=== PATIENT | female | born 1945 | race Caucasian/White ===

== ENCOUNTER 2017-08-29 06:54 | Day surgery (SDC) | payer MEDICARE, OTHER ==
[2017-08-26 17:01] VITALS: BMI 19.0
--- NOTE | 2017-08-29 09:11 | OP ---
DATE OF PROCEDURE: 08/29/2017 SURGEON: Dr. Jules Stanley PREOPERATIVE DIAGNOSES: Persistent nausea and vomiting. PROCEDURE: After informed consent was obtained, the patient was placed in the left lateral decubitus position. Anesthesia was administered per the Anesthesia Department. Forward-viewing endoscope was inserted into the esophagus under direct visualization with ease and passed to the second portion of the duodenum with ease. The second portion of the duodenum and duodenal bulb were normal. The pylo ward, antrum, body, fundus, and cardia were normal except for diffuse nonerosive gastritis. Biopsies were taken. Retroflexion in the stomach was normal. The esophagus showed white plaques throughout t he esophagus consistent with Kailey esophagitis. A 54 [place] Callahan was passed with some mild resi stance. Reinsertion of the endoscope showed some post-dilatation bleeding at the GE junction. ASSESSMENT: 1. Esophageal stricture - status post Callahan dilatation. 2. Kailey esophagitis. 3. Diffuse nonerosive gastritis - status post biopsy. RECOMMENDATIONS: 1. Diflucan. 2. Continue Nexium. 3. Follow up in my office in 2-3 days.
--- NOTE | 2017-08-29 11:18 | RAD ---
PA AND LATERAL VIEWS CHEST: HISTORY: Nausea. FINDINGS: The heart is enlarged. A left-sided AICD is present. The lungs are well expanded without confluent areas of consolidation, pneumothorax, or pleural effusions. There are mild degenerative changes in t he spine. No migel pulmonary edema is seen. IMPRESSION: Cardiomegaly. POS: CINTHYA
[2017-08-29] MEDS ORDERED: Lidocaine 1% PF 5 ML VIAL ONE (14:43)
== END 2017-08-29 09:40 | disposition home or self-care (01) ==
LOC: SDC 06:54
PROVIDERS: ATTEND Internal Medicine Gastroenterology
PROC: 0DJ08ZZ Inspection of Upper Intestinal Tract, Via Natural or Artificial Opening Endoscopic (ICD-10-PCS; principal; 2017-08-29)
PROC: 0D757DZ Dilation of Esophagus with Intraluminal Device, Via Natural or Artificial Opening (ICD-10-PCS; 2017-08-29)
DX: K22.2 Esophageal obstruction (principal); B37.81 Candidal esophagitis; K29.60 Other gastritis without bleeding; I42.8 Other cardiomyopathies; I10 Essential (primary) hypertension; M79.7 Fibromyalgia; K58.9 Irritable bowel syndrome, unspecified; Z79.899 Other long term (current) drug therapy; Z88.5 Allergy status to narcotic agent; Z95.810 Presence of automatic (implantable) cardiac defibrillator; Z90.49 Acquired absence of other specified parts of digestive tract; Z90.710 Acquired absence of both cervix and uterus; Z90.79 Acquired absence of other genital organ(s); Z90.722 Acquired absence of ovaries, bilateral; Z98.890 Other specified postprocedural states; Z87.891 Personal history of nicotine dependence; Z85.828 Personal history of other malignant neoplasm of skin; Z80.0 Family history of malignant neoplasm of digestive organs
CPT/HCPCS: 71046; 88305; 88312; J2001

== ENCOUNTER 2017-08-31 08:57 | Outpatient (CLI) | payer MEDICARE, OTHER ==
--- NOTE | 2017-08-31 11:24 | CT ---
ABDOMEN CT WITH CONTRAST PELVIC CT WITH CONTRAST: History: Nausea, vomiting x two weeks. Right flank pain and generalized abdominal pain. 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 Basal cell carcinoma on the chest. Previous cholecystectomy and hy sterectomy. Comparison: None. Technique: Abdomen and pelvic CT performed with IV and oral contrast. Coronal reformatted images are submitted for interpretation. FINDINGS: ABDOMEN CT: Chronic changes in the lung bases. Heart is enlarged. No significant pericardial fluid. The descendin g thoracic aorta and abdominal aorta have an overall normal caliber. No periaortic fat stranding. Intra and extrahepatic portal vein is patent. Gallbladder is surgically absent. There is resultant di latation of the common bile duct. The liver, spleen, pancreas, and adrenal glands have appropriate en hancement. Symmetric enhancement of the kidneys. Large exophytic cyst emanating from the upper pole left kidney with attenuation coefficient of 13 Hounsfield units suggesting a slightly complex cyst measuring 5.9 x 4.7 cm. Bilaterally, no obstructive uropathy. Symmetric attenuation of the psoas muscles. No retroperitoneal mass, lymphadenopathy, or hematoma. No retrocrural or peripleural lymphadenopathy. No mesenteric mass, lymphadenopathy, free air or free fluid. Gastric mucosal, duodenum, and small bowel loops have an overall normal caliber. Normal ileocecal junction. Appendix is not appreciated. Nevertheless, no inflammation of the cecal ap ex. There is contrast and fecal material in a nondistended, nondilated colon. The left hemicolon is d ecompressed. There is diverticulosis, without evidence of diverticulitis. Mucosal prominence of the l eft hemicolon likely due to inadequate distention. Colonoscopy if clinically warranted. PELVIC CT: The uterus is surgically absent. No pelvic mass, lymphadenopathy, free air. There is free fluid in th e pelvis. Urinary bladder is unremarkable. Right hip internal fixation hardware is noted. IMPRESSION: 1. No acute abnormality in the abdomen or pelvis. 2. Mucosal prominence of the left hemicolon likely due to inadequate distention. 3. CT evidence of diverticulosis without evidence of diverticulitis. 4. Left renal cyst, slightly complex. 5. Nonspecific fluid in the pelvis. Correlate clinically. POS: OFF
[2017-08-31] MEDS ORDERED: Iopamidol 370 76% 100 ML VIAL ONE (11:38)
== END 2017-08-31 08:58 | disposition home or self-care (01) ==
LOC: CT 08:57
PROVIDERS: ATTEND Internal Medicine Gastroenterology
DX: R11.2 Nausea with vomiting, unspecified (principal); K57.90 Diverticulosis of intestine, part unspecified, without perforation or abscess without bleeding; N28.1 Cyst of kidney, acquired
CPT/HCPCS: 74177

== ENCOUNTER 2017-09-08 09:07 | Day surgery (SDC) | payer MEDICARE, OTHER ==
[2017-09-07 09:26] VITALS: BMI 19.0
[2017-09-08 11:00] LABS: #Lymphocytes 0.7 thou/uL (1.20-3.40); #Monocytes 0.5 thou/uL (0.11-0.59); #Neutrophils 3.4 thou/uL (1.40-6.50); %Eosinophils 0.4 % (0.0-10.0); %Lymphocytes 14.8 % (21.0-51.0); %Monocytes 10.2 % (0.0-10.0); %Neutrophils 73.6 % (42.0-75.0); Hemoglobin 10.7 g/dL (12.0-16.0); Mean Corpuscular HGB CONC 32.5 g/dL (32.0-36.0); Mean Corpuscular Hemoglobin 30.7 pg (27.0-31.0); Mean Corpuscular Volume 94.5 fl (81.0-99.0); Mean Platelet Volume 7.2 fL (7.4-10.4); Platelet Count 237 thou/uL (130-400); RBC Distribution Width 13.5 % (11.5-14.5); Red Blood Cell (RBC) Count 3.47 mill/uL (4.20-5.40); White Blood Cell (WBC) Count 4.6 thou/uL (4.8-10.8)
[2017-09-08 11:28] LABS: Anion Gap 11 mmol/L (10-20); BUN (Urea Nitrogen) 19 mg/dL (9.8-20.1); Calc. Creatinine Clearance 45 mL/min (70-130); Calcium 8.5 mg/dL (7.8-10.44); Carbon Dioxide 25 mmol/L (23-31); Chloride 107 mmol/L (98-107); Estimated GFR-MDRD 57; Glucose 94 mg/dL (83-110); Potassium 3.4 mmol/L (3.5-5.1); Sodium 140 mmol/L (136-145)
--- NOTE | 2017-09-08 14:35 | RAD ---
ERCP: Date: 09-08-17 History: Nausea and vomiting for two weeks. Right flank pain. History of prior cholecystectomy. FINDINGS: Two intraoperative fluoroscopic images from ERCP are submitted. Initial image demonstrates instrument ation of the common duct with a guidewire in place. Surgical ducts are seen related to prior cholecys tectomy. There is dilatation of the common duct. Final image demonstrates opacification of the common duct as well as the visualized intrahepatic ducts which were also mildly dilated. A balloon catheter is seen within the distal common duct on the second provided image. IMPRESSION: Images from ERCP demonstrating dilatation of the common duct as well as visualized left hepatic ducts . Balloon catheter is seen within the distal common duct on second provided image. Correlation with i ntraoperative findings is recommended. POS: CINTHYA
--- NOTE | 2017-09-08 16:50 | EKG ---
Test Reason : PREOP Blood Pressure : / mmHG Vent. Rate : 057 BPM Atrial Rate : 057 BPM P-R Int : 134 ms QRS Dur : 206 ms QT Int : 568 ms P-R-T Axes : 074 -45 170 degrees QTc Int : 552 ms Atrial-sensed ventricular-paced rhythm Biventricular pacemaker detected Abnormal ECG No previous ECGs available Confirmed by DR. Nithya FRANCOIS ([id number]) on 09/08/2017 4:50:35 PM Referred By: Leonard SPEARS Confirmed By:DR. Nithya FRANCOIS
--- NOTE | 2017-09-08 18:05 | OP ---
PREOPERATIVE DIAGNOSES: 1. Right upper quadrant and right flank pain. 2. Nausea and vomiting. 3. Abnormal liver function tests. PROCEDURE IN DETAIL: After informed consent was obtained, the patient was placed in the left lateral decubitus position. Anesthesia was administered per the Anesthesia Department. A side-viewing endo scope was inserted into the esophagus under direct visualization with ease and passed to the second p ortion of the duodenum with ease. Second portion of the duodenum was normal. No mucosal abnormaliti es were noted. The ampulla was deformed as indication of previous ERCP and probable sphincterotomy. The pancreatic orifice was entered and wire was passed and pancreatogram was performed. A second or ifice was noted and this was the common bile duct. It was somewhat stenotic, but the tapered-tip can nula was passed. The cholangiogram showed a dilated duct. No obvious filling defects were noted. A sphincterotomy was performed to the fold. A 50 mm balloon was passed with ease. ASSESSMENT: Ampullary stenosis - status post sphincterotomy. RECOMMENDATIONS: Follow up in my office in 1 week.
== END 2017-09-08 13:50 | disposition home or self-care (01) ==
LOC: SDC 09:07 → EDSTATUS 13:21 → SDC 13:50
PROVIDERS: ATTEND Internal Medicine Gastroenterology
PROC: 0F798ZZ Dilation of Common Bile Duct, Via Natural or Artificial Opening Endoscopic (ICD-10-PCS; principal; 2017-09-08)
DX: K83.1 Obstruction of bile duct (principal); R94.5 Abnormal results of liver function studies; Z79.899 Other long term (current) drug therapy; Z88.5 Allergy status to narcotic agent; Z88.8 Allergy status to other drugs, medicaments and biological substances; Z90.49 Acquired absence of other specified parts of digestive tract; Z98.890 Other specified postprocedural states
CPT/HCPCS: 36415; 74330; 80048; 85025; 93005; 93010

== ENCOUNTER 2017-11-16 09:45 | Day surgery (SDC) | payer MEDICARE, OTHER ==
[2017-11-15 09:43] VITALS: BMI 18.6
--- NOTE | 2017-11-16 14:34 | OP ---
PREOPERATIVE DIAGNOSES: 1. History of colon polyps. 2. Family history of colon cancer. PROCEDURE IN DETAIL: After informed consent was obtained, the patient was placed in the left lateral decubitus position. Anesthesia was administered per the Anesthesia Department. Forward-viewing end oscope was inserted into the rectum after perianal inspection and rectal exam were normal and passed to the cecum with ease. The cecum, ileocecal valve, and appendiceal orifice were normal. The prep w as excellent. The terminal ileum was normal. The ascending, transverse, descending, sigmoid and rec mandy were normal except for left-sided diverticulosis coli. ASSESSMENT: 1. Left-sided diverticulosis coli. 2. Otherwise normal ileal colonoscopy. RECOMMENDATIONS: Repeat colonoscopy in 5 years.
[2017-11-16] MEDS ORDERED: PROPOFOL 200 MG/20 ML VIAL ONE (14:51)
[2017-11-16] MEDS ORDERED: Lidocaine 1% PF 5 ML VIAL ONE (14:51)
== END 2017-11-16 13:35 | disposition home or self-care (01) ==
LOC: SDC 09:45
PROVIDERS: ATTEND Internal Medicine Gastroenterology
PROC: 0DJD8ZZ Inspection of Lower Intestinal Tract, Via Natural or Artificial Opening Endoscopic (ICD-10-PCS; principal; 2017-11-16)
DX: Z12.11 Encounter for screening for malignant neoplasm of colon (principal); K57.30 Diverticulosis of large intestine without perforation or abscess without bleeding; Z86.010 Personal history of colon polyps; Z87.891 Personal history of nicotine dependence; Z80.0 Family history of malignant neoplasm of digestive organs; Z79.2 Long term (current) use of antibiotics; Z79.899 Other long term (current) drug therapy; Z88.5 Allergy status to narcotic agent
CPT/HCPCS: J2001; J2704

== ENCOUNTER 2020-11-25 18:19 | Inpatient (IN) | payer MEDICARE ==
[2020-11-25 19:16] LABS: Bilirubin Negative (Negative); Blood, Urine Negative (Negative); Clarity Clear (Clear); Glucose, Urine (Dipstick) Normal (Negative); Ketone, Urine Negative (Negative); Leukocyte Negative Leu/uL (Negative); Nitrite Negative (Negative); Protein, Urine (Dipstick) 20 mg/dL (Neg-Trace); Specific Gravity, Urine 1.019 (1.002-1.036); Urobilinogen 3 mg/dL (Less than 2); pH, Urine 5.5 (5.0-9.0)
[2020-11-25 19:18] LABS: #Lymphocytes 0.5 thou/uL (1.20-3.40); #Monocytes 0.4 thou/uL (0.11-0.59); #Neutrophils 5.1 thou/uL (1.40-6.50); %Basophils 0.2 % (0.0-1.0); %Eosinophils 0.4 % (0.0-10.0); %Lymphocytes 8.1 % (21.0-51.0); %Monocytes 6.7 % (0.0-10.0); %Neutrophils 84.6 % (42.0-75.0); Hemoglobin 12.2 g/dL (12.0-16.0); Mean Corpuscular HGB CONC 32.1 g/dL (32.0-36.0); Mean Corpuscular Hemoglobin 31.4 pg (27.0-31.0); Mean Corpuscular Volume 97.9 fL (78.0-98.0); Mean Platelet Volume 8.1 fL (7.4-10.4); Platelet Count 158 thou/uL (130-400); RBC Distribution Width 17.3 % (11.5-14.5); White Blood Cell (WBC) Count 6.1 thou/uL (4.8-10.8)
[2020-11-25 19:41] LABS: ALT (SGPT) 15 U/L (8-55); AST (SGOT) 24 U/L (5-34); Albumin 3.1 g/dL (3.4-4.8); Alkaline Phosphatase 100 U/L (40-110); Anion Gap 17 mmol/L (10-20); BUN (Urea Nitrogen) 29 mg/dL (9.8-20.1); Bilirubin, Total 1.8 mg/dL (0.2-1.2); Calc. Creatinine Clearance 0 mL/min (70-130); Calcium 8.4 mg/dL (7.8-10.44); Carbon Dioxide 21 mmol/L (23-31); Chloride 102 mmol/L (98-107); Globulin 2.7 g/dL (2.4-3.5); Glucose 97 mg/dL (83-110); Protein, Total 5.8 g/dL (5.8-8.1); Sodium 137 mmol/L (136-145)
[2020-11-25 19:51] LABS: Potassium 2.8 mmol/L (3.5-5.1)
[2020-11-25] MEDS ORDERED: Potassium Chloride 20 MEQ TAB ONE (19:51)
[2020-11-26] MEDS ORDERED: Ondansetron ODT 4 MG TAB SL PRN (00:45)
[2020-11-26] MEDS ORDERED: Acetaminophen 325 MG TAB PO PRN (00:45)
[2020-11-26] MEDS ORDERED: Ondansetron PF 4 MG/2 ML Vial IVP PRN ×2 (00:45→05:32)
[2020-11-26] MEDS ORDERED: Magnesium Oxide 400 MG TAB PO SCH (05:45)
[2020-11-26] MEDS ORDERED: Potassium Chloride 20 MEQ TAB PO SCH ×2 (05:45→09:15)
[2020-11-26] MEDS: Furosemide 40 MG/4 ML VIAL SLOW IVP SCH ×2 (05:51→15:05)
[2020-11-26] MEDS ORDERED: Furosemide 40 MG/4 ML VIAL SLOW IVP SCH (06:00)
[2020-11-26 06:08] LABS: #Lymphocytes 0.4 thou/uL (1.20-3.40); #Monocytes 0.4 thou/uL (0.11-0.59); #Neutrophils 5.1 thou/uL (1.40-6.50); %Basophils 0.1 % (0.0-1.0); %Eosinophils 0.3 % (0.0-10.0); %Lymphocytes 7.1 % (21.0-51.0); %Monocytes 6.6 % (0.0-10.0); %Neutrophils 85.9 % (42.0-75.0); Hemoglobin 12.2 g/dL (12.0-16.0); Mean Corpuscular HGB CONC 31.3 g/dL (32.0-36.0); Mean Corpuscular Hemoglobin 30.7 pg (27.0-31.0); Mean Corpuscular Volume 98.1 fL (78.0-98.0); Mean Platelet Volume 8.4 fL (7.4-10.4); Platelet Count 146 thou/uL (130-400); RBC Distribution Width 17.6 % (11.5-14.5); Red Blood Cell (RBC) Count 3.95 mill/uL (4.20-5.40)
[2020-11-26 06:36] LABS: Anion Gap 16 mmol/L (10-20); BUN (Urea Nitrogen) 30 mg/dL (9.8-20.1); Calc. Creatinine Clearance 34 mL/min (70-130); Calcium 8.3 mg/dL (7.8-10.44); Carbon Dioxide 16 mmol/L (23-31); Chloride 109 mmol/L (98-107); Glucose 96 mg/dL (83-110); Magnesium 1.7 mg/dL (1.6-2.6); Potassium 3.4 mmol/L (3.5-5.1); Sodium 138 mmol/L (136-145)
[2020-11-26] MEDS: Potassium Chloride 20 MEQ TAB PO SCH (08:12)
[2020-11-26 11:34] LABS: SARS-CoV-2 NAA Rapid Test Not Detected (NotDetected)
[2020-11-26 14:15] LABS: Amphetamine Not Detected (NotDetected); Barbiturates Screen Not Detected (NotDetected); Benzodiazepine Screen Not Detected (NotDetected); Cocaine Metabolite Screen Not Detected (NotDetected); Medtox Control Line Valid? VALID (VALID); Medtox Reader # READER 4; Methadone Not Detected (NotDetected); Methamphetamine Not Detected (NotDetected); Opiate Screen Not Detected (NotDetected); Oxycodone Screen Not Detected (NotDetected); Phencyclidine (PCP) Not Detected (NotDetected); THC/Cannabinoid Screen Not Detected (NotDetected); Tricyclic Screen Not Detected (NotDetected)
[2020-11-27 05:52] LABS: #Lymphocytes 0.5 thou/uL (1.20-3.40); #Monocytes 0.4 thou/uL (0.11-0.59); #Neutrophils 4.8 thou/uL (1.40-6.50); %Eosinophils 0.1 % (0.0-10.0); %Lymphocytes 8.5 % (21.0-51.0); %Monocytes 7.3 % (0.0-10.0); %Neutrophils 84.1 % (42.0-75.0); Hemoglobin 12.4 g/dL (12.0-16.0); Mean Corpuscular Hemoglobin 32.5 pg (27.0-31.0); Mean Corpuscular Volume 98.6 fL (78.0-98.0); Mean Platelet Volume 8.2 fL (7.4-10.4); Platelet Count 159 thou/uL (130-400); RBC Distribution Width 17.8 % (11.5-14.5); Red Blood Cell (RBC) Count 3.82 mill/uL (4.20-5.40); White Blood Cell (WBC) Count 5.7 thou/uL (4.8-10.8)
[2020-11-27] MEDS: Furosemide 40 MG/4 ML VIAL SLOW IVP SCH (05:56)
[2020-11-27 06:13] LABS: Anion Gap 18 mmol/L (10-20); BUN (Urea Nitrogen) 32 mg/dL (9.8-20.1); Calc. Creatinine Clearance 33 mL/min (70-130); Calcium 8.5 mg/dL (7.8-10.44); Carbon Dioxide 19 mmol/L (23-31); Chloride 108 mmol/L (98-107); Glucose 100 mg/dL (83-110); Magnesium 1.8 mg/dL (1.6-2.6); Potassium 3.9 mmol/L (3.5-5.1); Sodium 141 mmol/L (136-145)
[2020-11-27] MEDS: Potassium Chloride 20 MEQ TAB PO SCH (07:44)
[2020-11-27] MEDS ORDERED: traMADol HCl 50 MG TAB PO PRN (13:26)
[2020-11-28] MEDS ORDERED: Enoxaparin Sodium 60 MG/0.6 ML SYRINGE SC SCH ×3 (01:15→09:00)
[2020-11-28 05:29] LABS: #Lymphocytes 0.4 thou/uL (1.20-3.40); #Monocytes 0.4 thou/uL (0.11-0.59); #Neutrophils 4.2 thou/uL (1.40-6.50); %Basophils 0.4 % (0.0-1.0); %Eosinophils 0.4 % (0.0-10.0); %Lymphocytes 7.7 % (21.0-51.0); %Monocytes 8.6 % (0.0-10.0); Hemoglobin 12.1 g/dL (12.0-16.0); Mean Corpuscular HGB CONC 31.1 g/dL (32.0-36.0); Mean Corpuscular Volume 99.6 fL (78.0-98.0); Mean Platelet Volume 8.1 fL (7.4-10.4); Platelet Count 154 thou/uL (130-400); RBC Distribution Width 17.6 % (11.5-14.5)
[2020-11-28 05:56] LABS: Anion Gap 14 mmol/L (10-20); BUN (Urea Nitrogen) 35 mg/dL (9.8-20.1); Calc. Creatinine Clearance 30 mL/min (70-130); Calcium 8.5 mg/dL (7.8-10.44); Carbon Dioxide 22 mmol/L (23-31); Chloride 108 mmol/L (98-107); Glucose 94 mg/dL (83-110); Magnesium 1.7 mg/dL (1.6-2.6); Sodium 140 mmol/L (136-145)
[2020-11-28] MEDS: Potassium Chloride 20 MEQ TAB PO SCH (07:38)
[2020-11-28] MEDS: Amiodarone 200 MG TAB PO SCH (07:39)
[2020-11-28] MEDS: Docusate 100 MG CAP PO SCH ×2 (07:39→07:42)
[2020-11-28] MEDS: Furosemide 20 MG TAB PO SCH (07:39)
[2020-11-28] MEDS: Enoxaparin Sodium 60 MG/0.6 ML SYRINGE SC SCH (20:03)
[2020-11-29 05:56] LABS: #Lymphocytes 0.6 thou/uL (1.20-3.40); #Monocytes 0.5 thou/uL (0.11-0.59); #Neutrophils 4.8 thou/uL (1.40-6.50); %Basophils 0.2 % (0.0-1.0); %Eosinophils 0.2 % (0.0-10.0); %Lymphocytes 10.5 % (21.0-51.0); %Monocytes 8.3 % (0.0-10.0); %Neutrophils 80.9 % (42.0-75.0); Hemoglobin 12.6 g/dL (12.0-16.0); Mean Corpuscular HGB CONC 31.5 g/dL (32.0-36.0); Mean Corpuscular Hemoglobin 31.6 pg (27.0-31.0); Mean Platelet Volume 7.9 fL (7.4-10.4); Platelet Count 183 thou/uL (130-400); RBC Distribution Width 17.7 % (11.5-14.5); Red Blood Cell (RBC) Count 3.98 mill/uL (4.20-5.40); White Blood Cell (WBC) Count 5.9 thou/uL (4.8-10.8)
[2020-11-29 06:16] LABS: Anion Gap 17 mmol/L (10-20); BUN (Urea Nitrogen) 38 mg/dL (9.8-20.1); Calc. Creatinine Clearance 29 mL/min (70-130); Calcium 8.8 mg/dL (7.8-10.44); Carbon Dioxide 17 mmol/L (23-31); Chloride 110 mmol/L (98-107); Glucose 89 mg/dL (83-110); Magnesium 1.8 mg/dL (1.6-2.6); Sodium 140 mmol/L (136-145)
[2020-11-29] MEDS: Furosemide 20 MG TAB PO SCH (09:25)
[2020-11-29] MEDS: Potassium Chloride 20 MEQ TAB PO SCH (09:25)
[2020-11-29] MEDS: Amiodarone 200 MG TAB PO SCH (09:25)
[2020-11-29] MEDS: Docusate 100 MG CAP PO SCH (09:26)
[2020-11-29] MEDS ORDERED: Furosemide 20 MG/2 ML VIAL SLOW IVP SCH (15:00)
[2020-11-29] MEDS: Enoxaparin Sodium 60 MG/0.6 ML SYRINGE SC SCH (21:02)
[2020-11-29] MEDS: Carvedilol 6.25 MG TAB PO SCH (21:02)
[2020-11-29] MEDS: Acetaminophen 325 MG TAB PO PRN (21:03)
[2020-11-30] MEDS ORDERED: OLANZapine 10 MG VIAL IM SCH (02:45)
[2020-11-30] MEDS ORDERED: Sterile Water 10 ML VIAL FS PRN (02:45)
[2020-11-30] MEDS: Furosemide 20 MG/2 ML VIAL SLOW IVP SCH ×2 (05:11→14:05)
[2020-11-30 06:29] LABS: Anion Gap 18 mmol/L (10-20); BUN (Urea Nitrogen) 47 mg/dL (9.8-20.1); Calc. Creatinine Clearance 25 mL/min (70-130); Calcium 8.1 mg/dL (7.8-10.44); Carbon Dioxide 17 mmol/L (23-31); Chloride 111 mmol/L (98-107); Glucose 76 mg/dL (83-110); Magnesium 1.8 mg/dL (1.6-2.6); Potassium 4.3 mmol/L (3.5-5.1); Sodium 142 mmol/L (136-145)
[2020-11-30] MEDS: Carvedilol 6.25 MG TAB PO SCH ×2 (11:56→21:09)
[2020-11-30] MEDS: Docusate 100 MG CAP PO SCH (11:56)
[2020-11-30] MEDS: Amiodarone 200 MG TAB PO SCH (11:56)
[2020-11-30] MEDS: Potassium Chloride 20 MEQ TAB PO SCH (11:57)
[2020-11-30] MEDS: Furosemide 20 MG TAB PO SCH (11:57)
[2020-11-30] MEDS: Enoxaparin Sodium 60 MG/0.6 ML SYRINGE SC SCH (21:09)
[2020-12-01] MEDS: Furosemide 20 MG/2 ML VIAL SLOW IVP SCH ×2 (05:17→13:39)
[2020-12-01 05:57] LABS: Anion Gap 17 mmol/L (10-20); BUN (Urea Nitrogen) 47 mg/dL (9.8-20.1); Calc. Creatinine Clearance 24 mL/min (70-130); Calcium 8.5 mg/dL (7.8-10.44); Carbon Dioxide 21 mmol/L (23-31); Chloride 114 mmol/L (98-107); Glucose 76 mg/dL (83-110); Potassium 3.8 mmol/L (3.5-5.1); Sodium 148 mmol/L (136-145)
[2020-12-01] MEDS: Enoxaparin Sodium 60 MG/0.6 ML SYRINGE SC SCH (08:20)
[2020-12-01] MEDS: Potassium Chloride 20 MEQ TAB PO SCH (08:20)
[2020-12-01] MEDS: Docusate 100 MG CAP PO SCH (08:21)
[2020-12-01] MEDS: Amiodarone 200 MG TAB PO SCH (08:21)
[2020-12-01] MEDS: Carvedilol 6.25 MG TAB PO SCH ×2 (08:21→20:59)
[2020-12-01] MEDS ORDERED: Sodium Bicarbonate Tab 325 MG TAB PO SCH (09:30)
[2020-12-01] MEDS ORDERED: Dextrose 5% in Water 1,000 ML IV SCH (10:00)
[2020-12-01] MEDS: DOBUTamine 500 mg/250 ml 250 ML IVPB SCH (15:34)
[2020-12-01 16:56] LABS: Albumin 2.8 g/dL (3.4-4.8); Anion Gap 16 mmol/L (10-20); BUN (Urea Nitrogen) 42 mg/dL (9.8-20.1); BUN/Creatinine Ratio 27.45; Calc. Creatinine Clearance 27 mL/min (70-130); Calcium 8.4 mg/dL (7.8-10.44); Carbon Dioxide 22 mmol/L (23-31); Chloride 113 mmol/L (98-107); Glucose 108 mg/dL (83-110); Phosphorus 3.3 mg/dL (2.3-4.7); Potassium 3.1 mmol/L (3.5-5.1); Sodium 148 mmol/L (136-145)
[2020-12-01] MEDS: Sodium Bicarbonate Tab 325 MG TAB PO SCH (20:59)
[2020-12-01] MEDS: Acetaminophen 325 MG TAB PO PRN (21:01)
[2020-12-02 06:17] LABS: Anion Gap 14 mmol/L (10-20); BUN (Urea Nitrogen) 42 mg/dL (9.8-20.1); Calc. Creatinine Clearance 29 mL/min (70-130); Carbon Dioxide 23 mmol/L (23-31); Chloride 115 mmol/L (98-107); Sodium 149 mmol/L (136-145)
[2020-12-02 06:18] LABS: Calcium 8.5 mg/dL (7.8-10.44); Glucose 113 mg/dL (83-110)
[2020-12-02] MEDS: Furosemide 20 MG/2 ML VIAL SLOW IVP SCH ×2 (06:23→12:43)
[2020-12-02] MEDS ORDERED: Potassium Bicarbonate/Cit Ac 20 MEQ TAB PO SCH (06:30)
[2020-12-02] MEDS ORDERED: Potassium Chloride 20 MEQ TAB PO SCH (07:45)
[2020-12-02] MEDS: Docusate 100 MG CAP PO SCH (08:14)
[2020-12-02] MEDS: Enoxaparin Sodium 60 MG/0.6 ML SYRINGE SC SCH (08:14)
[2020-12-02] MEDS: Potassium Bicarbonate/Cit Ac 20 MEQ TAB PO SCH ×2 (08:15→22:40)
[2020-12-02] MEDS: Amiodarone 200 MG TAB PO SCH (08:15)
[2020-12-02] MEDS: Sodium Bicarbonate Tab 325 MG TAB PO SCH ×2 (08:15→22:40)
[2020-12-02] MEDS: Carvedilol 6.25 MG TAB PO SCH ×2 (08:15→22:40)
[2020-12-02] MEDS: Potassium Chloride 10 MEQ in Premix Bag 1 BAG IVPB SCH ×4 (08:35→11:30)
[2020-12-02] MEDS: Dextrose 5% in Water 1,000 ML IV SCH ×2 (10:21→22:39)
[2020-12-02] MEDS: DOBUTamine 500 mg/250 ml 250 ML IVPB SCH (16:36)
[2020-12-03 06:32] LABS: Hemoglobin 11.7 g/dL (12.0-16.0); Mean Corpuscular HGB CONC 32.9 g/dL (32.0-36.0); Mean Corpuscular Hemoglobin 32.8 pg (27.0-31.0); Mean Corpuscular Volume 99.7 fL (78.0-98.0); Mean Platelet Volume 7.5 fL (7.4-10.4); Platelet Count 149 thou/uL (130-400); RBC Distribution Width 17.9 % (11.5-14.5); Red Blood Cell (RBC) Count 3.57 mill/uL (4.20-5.40); White Blood Cell (WBC) Count 4.5 thou/uL (4.8-10.8)
[2020-12-03 06:51] LABS: Albumin 2.8 g/dL (3.4-4.8); Anion Gap 12 mmol/L (10-20); BUN (Urea Nitrogen) 34 mg/dL (9.8-20.1); BUN/Creatinine Ratio 32.08; Calc. Creatinine Clearance 39 mL/min (70-130); Calcium 8.1 mg/dL (7.8-10.44); Carbon Dioxide 26 mmol/L (23-31); Chloride 106 mmol/L (98-107); Glucose 156 mg/dL (83-110); Magnesium 1.6 mg/dL (1.6-2.6); Phosphorus Less than 1.0 mg/dL (2.3-4.7); Potassium 3.1 mmol/L (3.5-5.1); Sodium 141 mmol/L (136-145)
[2020-12-03] MEDS: Furosemide 20 MG/2 ML VIAL SLOW IVP SCH (07:13)
[2020-12-03] MEDS ORDERED: Magnesium Sulfate 4 GM in Sodium Chloride 0.9% 250 ML 250 ML IVPB SCH (07:45)
[2020-12-03] MEDS ORDERED: Potassium Phosphate 30 MMOL in Sodium Chloride 0.9% 250 ML 250 ML IVPB SCH (07:45)
[2020-12-03] MEDS: Dextrose 5% in Water 1,000 ML IV SCH (08:06)
[2020-12-03] MEDS: Enoxaparin Sodium 60 MG/0.6 ML SYRINGE SC SCH ×2 (08:40→21:16)
[2020-12-03] MEDS: Amiodarone 200 MG TAB PO SCH (08:41)
[2020-12-03] MEDS: Sodium Bicarbonate Tab 325 MG TAB PO SCH ×2 (08:41→21:16)
[2020-12-03] MEDS: Potassium Bicarbonate/Cit Ac 20 MEQ TAB PO SCH ×2 (08:41→21:16)
[2020-12-03] MEDS: Carvedilol 6.25 MG TAB PO SCH ×2 (08:41→21:26)
[2020-12-03] MEDS: Docusate 100 MG CAP PO SCH (08:41)
[2020-12-03 12:03] VITALS: BMI 18.4
[2020-12-03] MEDS: Furosemide 40 MG/4 ML VIAL SLOW IVP SCH (14:01)
[2020-12-04] MEDS: Acetaminophen 325 MG TAB PO PRN (00:01)
[2020-12-04] MEDS: DOBUTamine 500 mg/250 ml 250 ML IVPB SCH (01:25)
[2020-12-04 05:52] LABS: Albumin 2.7 g/dL (3.4-4.8); Anion Gap 12 mmol/L (10-20); BUN (Urea Nitrogen) 29 mg/dL (9.8-20.1); BUN/Creatinine Ratio 34.94; Calc. Creatinine Clearance 48 mL/min (70-130); Calcium 7.7 mg/dL (7.8-10.44); Carbon Dioxide 27 mmol/L (23-31); Chloride 103 mmol/L (98-107); Glucose 137 mg/dL (83-110); Phosphorus 1.4 mg/dL (2.3-4.7); Potassium 3.4 mmol/L (3.5-5.1); Sodium 139 mmol/L (136-145)
[2020-12-04] MEDS: Furosemide 40 MG/4 ML VIAL SLOW IVP SCH ×2 (05:56→14:02)
[2020-12-04] MEDS ORDERED: Electrolyte Replacement Protocol FS PRN (06:45)
[2020-12-04] MEDS ORDERED: Magnesium 2 GM/50 ML 2 GM in Premix Bag 1 BAG IVPB SCH (07:45)
[2020-12-04] MEDS ORDERED: Potassium Phosphate 30 MMOL in Sodium Chloride 0.9% 250 ML 250 ML IVPB SCH (08:30)
[2020-12-04] MEDS: PHOS-NAK 1 PKT PACK PO SCH ×3 (08:59→17:27)
[2020-12-04] MEDS: Carvedilol 6.25 MG TAB PO SCH (09:00)
[2020-12-04] MEDS: Sodium Bicarbonate Tab 325 MG TAB PO SCH (09:00)
[2020-12-04] MEDS: Amiodarone 200 MG TAB PO SCH (09:00)
[2020-12-04] MEDS: Docusate 100 MG CAP PO SCH (09:01)
[2020-12-04] MEDS: Potassium Bicarbonate/Cit Ac 20 MEQ TAB PO SCH (09:01)
[2020-12-04] MEDS: Enoxaparin Sodium 60 MG/0.6 ML SYRINGE SC SCH (09:01)
[2020-12-04 09:02] LABS: #Lymphocytes 0.3 thou/uL (1.20-3.40); #Monocytes 0.2 thou/uL (0.11-0.59); #Neutrophils 3.8 thou/uL (1.40-6.50); %Basophils 0.1 % (0.0-1.0); %Eosinophils 0.7 % (0.0-10.0); %Monocytes 5.3 % (0.0-10.0); %Neutrophils 87.9 % (42.0-75.0); Hemoglobin 11.8 g/dL (12.0-16.0); Mean Corpuscular HGB CONC 31.5 g/dL (32.0-36.0); Mean Corpuscular Hemoglobin 31.7 pg (27.0-31.0); Platelet Count 150 thou/uL (130-400); RBC Distribution Width 17.9 % (11.5-14.5); Red Blood Cell (RBC) Count 3.74 mill/uL (4.20-5.40); White Blood Cell (WBC) Count 4.3 thou/uL (4.8-10.8)
[2020-12-04] MEDS ORDERED: Polyethylene Glycol 3350 17 GM Packet PO PRN (15:23)
[2020-12-04 15:49] VITALS: BP 117/75; TEMP 98.2
[2020-12-04] MEDS ORDERED: Calcium Chloride 1 GM/10 ML Abboject SYRINGE ONE (18:09)
[2020-12-04] MEDS ORDERED: EPINEPHrine 1 MG/10 ML Abboject SYRINGE ONE (18:09)
[2020-12-04] MEDS ORDERED: Sodium Bicarb 50 MEQ/50 ML Abboject 8.4% SYRINGE ONE (18:09)
[2020-12-05] MEDS ORDERED: Furosemide 20 MG/2 ML VIAL SLOW IVP SCH (06:00)
== END 2020-12-04 20:58 | disposition expired | DRG 291 ==
LOC: ERS 18:19 → 2SE 22:49 → OBSVTOIN 11-26 09:17
PROVIDERS: ADMIT Internal Medicine; ATTEND Emergency Medicine
DX: I13.0 Hypertensive heart and chronic kidney disease with heart failure and stage 1 through stage 4 chronic kidney disease, or unspecified chronic kidney disease (principal); J96.01 Acute respiratory failure with hypoxia; I50.23 Acute on chronic systolic (congestive) heart failure; G93.41 Metabolic encephalopathy; N17.9 Acute kidney failure, unspecified; I82.412 Acute embolism and thrombosis of left femoral vein; I48.20 Chronic atrial fibrillation, unspecified; E87.2 Acidosis; E87.0 Hyperosmolality and hypernatremia; F01.50 Vascular dementia, unspecified severity, without behavioral disturbance, psychotic disturbance, mood disturbance, and anxiety; E87.6 Hypokalemia; I42.8 Other cardiomyopathies; S09.90XA Unspecified injury of head, initial encounter; W19.XXXA Unspecified fall, initial encounter; N18.30 Chronic kidney disease, stage 3 unspecified; R53.81 Other malaise; Z20.822 Contact with and (suspected) exposure to COVID-19; E83.39 Other disorders of phosphorus metabolism; E83.42 Hypomagnesemia; Z88.8 Allergy status to other drugs, medicaments and biological substances; Z79.899 Other long term (current) drug therapy; Z90.49 Acquired absence of other specified parts of digestive tract; Z90.710 Acquired absence of both cervix and uterus; Z98.890 Other specified postprocedural states; Z95.810 Presence of automatic (implantable) cardiac defibrillator; Z85.828 Personal history of other malignant neoplasm of skin; Z82.49 Family history of ischemic heart disease and other diseases of the circulatory system
CPT/HCPCS: 36415; 36416; 51701; 70450; 70486; 71045; 72125; 74018; 74230; 76770; 80048; 80053; 80069; 80306; 81003; 82140; 82306; 82550; 83735; 83880; 84443; 85025; 85027; 87086; 93005; 93010; 93306; 96374; G0378; J0171; J1250; J1650; J1940; J2358; J3475; J3480; J7050; U0002; U0005